=== PATIENT | male | born 1960 | race Caucasian/White ===

== ENCOUNTER → 2017-05-16 | Day surgery (SDC) | payer OTHER ==
[~2017-05-16] VITALS: Ht 172.7 cm; Wt 77.4 kg
[~2017-05-16] MED LIST: *morphine SULFATE 4 MG/ML PERIprocedure ONLY ONE; BUPIVACAINE/EPINEPHRINE 0.5% 50 ML VIAL ONE; CHLORHEXIDINE GLUCONATE 2 % 1 PACK (2 CLOTHS) TOPICAL PRN; DO NOT ADM ANY ANTICOAGULANT DRUGS PRN; GLYCOPYRROLATE 1 MG/5 ML SYRINGE IV PUSH ONE; LIDOCAINE HCL 1% PF 5 ML SYRINGE OTHER ONE; METOPROLOL TARTRATE 25 MG TAB PO PRN; MIDAZOLAM HCL 2 MG/2 ML VIAL ONE; OMEGCAP PO; ONDANSETRON HCL 4 MG/2 ML VIAL IV ONE; PERC5TAB12 PO; POVIDONE IODINE 5% (ANTISEPSIS KIT) 4 APPLICATIONS EACH NARE PRN; PROPOFOL 200 MG/20 ML AMP IV ONE; SODIUM CHLORID 0.9% 500 ML IV PRN; TOBR.3%O EACH EYE; ceFAZolin INJ 1,000 MG VIAL IV ONE; ePHEDrine/NS 25 MG/5 ML SYRINGE IV ONE; oxyCODONE/ACETAMINOPHEN 5 MG/325 MG TAB ONE; oxyCODONE/ACETAMINOPHEN 5 MG/325 MG TAB PO ONE
[2017-05-16] MEDS: LACTATED RINGER'S 1000 ML IV PRN ×2 (08:34→11:01)
[2017-05-16 08:51] LABS: AUTOMATED NEUTROPHIL # 3.7 TH/MM3 (1.8-7.7); BASOPHIL % 0.7 % (0.0-2.0); EOSINOPHIL # 0.1 TH/MM3 (0-0.4); EOSINOPHIL % 1.4 % (0.0-4.0); HEMATOCRIT 40.1 % (39.0-51.0); HEMOGLOBIN 14.2 GM/DL (13.0-17.0); LYMPH % 21.9 % (9.0-44.0); LYMPHOCYTE # 1.2 TH/MM3 (1.0-4.8); MEAN CELL VOLUME 93.9 FL (80.0-100.0); MEAN CORPUSCULAR HEMOGLOBIN 33.3 PG (27.0-34.0); MEAN CORPUSCULAR HGB CONC 35.4 % (32.0-36.0); MEAN PLATELET VOLUME 6.7 FL (7.0-11.0); MONO % 9.3 % (0.0-8.0); MONOCYTE # 0.5 TH/MM3 (0-0.9); NEUT % 66.7 % (16.0-70.0); PLATELET COUNT 387 TH/MM3 (150-450); RED BLOOD COUNT 4.28 MIL/MM3 (4.50-5.90); RED CELL DISTRIBUTION WIDTH 14.2 % (11.6-17.2); WHITE BLOOD COUNT 5.5 TH/MM3 (4.0-11.0)
[2017-05-16 09:11] LABS: BICARBONATE 27.7 MEQ/L (21.0-32.0); CALCIUM 8.6 MG/DL (8.5-10.1); CREATININE 0.83 MG/DL (0.60-1.30)
--- NOTE | 2017-05-16 09:32 | RADRPT ---
EXAM DATE/TIME: 05/16/2017 08:29 [place] COMPARISON: No previous studies available for comparison. INDICATIONS : Evaluate for pneumonia, pneuothorax, or communicable disease. Pre op for hernia repair. MEDICAL HISTORY : None. SURGICAL HISTORY : None. ENCOUNTER: Initial ACUITY: 1 day PAIN SCORE: 0/10 LOCATION: Bilateral chest FINDINGS: A single view of the chest demonstrates the lungs to be symmetrically aerated without evidence of mas s, infiltrate or effusion. The cardiomediastinal contours are unremarkable. Osseous structures are intact. CONCLUSION: Normal examination. Jimy Vickers MD on May 16, 2017 at 9:30 Board Certified Radiologist. This report was verified electronically.
[2017-05-16 13:40] VITALS: BP 154/90; PULSE 72; RESP 16; TEMP 97.6; O2SAT 99
--- NOTE | 2017-05-16 21:51 | EKG ---
Date Performed: 05/16/2017 Time Performed: 08:46:49 PTAGE: 57 years EKG: Sinus rhythm NORMAL ECG NO PREVIOUS TRACING DOCTOR: Miguelito Bauer Interpretating Date/Time 05/16/2017 21:49:57
--- NOTE | 2017-05-18 16:58 | MP ---
cc: MD REYES,ZAHRAA DATE OF SURGERY: 05/16/2017. PREOPERATIVE DIAGNOSIS: Umbilical hernia. POSTOPERATIVE DIAGNOSIS: Umbilical hernia. OPERATIVE PROCEDURE PERFORMED: Umbilical hernia repair. SURGEON: Zahraa Franco M.D. ANESTHESIA: 1% xylocaine. ESTIMATED BLOOD LOSS: 3 cc. DESCRIPTION OF THE PROCEDURE IN DETAIL: The patient was prepped and draped in the usual fashion. A subumbilical incision was made in a smiley fashion and now with the Metzenbaum scissors, the umbilical hernia sac was circled and then umbilical skin was elevated off it. A small amount of omentum was found, which was stuck and this was from the skin and then the sac was cut out. A piece of omentum was now clamped, divided and ligated with 2-0 silk and then the rest of it dropped in the abdomen. The edges were freed up and then the hernia was observed. It measured just about one inch in diameter. It was extended laterally and then with several #0 Vicryl it was closed horizontally. The area was irrigated with saline and then tissue was closed with 2-0 Vicryl and 4-0 Monocryl. The patient tolerated the procedure well. Zahraa GUY/RENEE /4:47 PM /4:49 PM
== END | disposition home or self-care (01) ==
LOC: HSDC 07:57
PROVIDERS: ATTEND Surgery
DX: K42.9 Umbilical hernia without obstruction or gangrene (principal); F17.200 Nicotine dependence, unspecified, uncomplicated; Z01.810 Encounter for preprocedural cardiovascular examination; Z01.811 Encounter for preprocedural respiratory examination
CPT/HCPCS: 00750; 49585; 71045; 80048; 85025; 93005; J0690; J2250; J2270; J3010; J7120; J2405